=== PATIENT | female | born 1980 | race African-American/Black ===

== ENCOUNTER 2019-06-28 05:31 | Emergency (ER) | payer OTHER ==
[2019-06-28] MEDS ORDERED: Ketorolac Tromethamine 30 MG/ML VIAL ONE (05:41)
== END 2019-06-28 06:02 | disposition home or self-care (01) ==
LOC: ERS 05:31
DX: K03.81 Cracked tooth (principal); F17.210 Nicotine dependence, cigarettes, uncomplicated
CPT/HCPCS: 96372; 99282; J1885